=== PATIENT | male | born 1985 | race African-American/Black ===

== ENCOUNTER 2017-11-07 17:28 | Emergency (ER) | payer MEDICAID ==
[~2017-11-07] VITALS: Ht 170.2 cm; Wt 73.0 kg
[2017-11-07 18:17] VITALS: BP 116/65
== END 2017-11-07 23:14 | disposition home or self-care (01) ==
LOC: ER 23:09
DX: J06.9 Acute upper respiratory infection, unspecified (principal)
CPT/HCPCS: 71045; 99283

== ENCOUNTER 2018-12-17 09:38 | Emergency (ER) | payer BC, MEDICAID ==
[~2018-12-17] VITALS: Ht 167.6 cm; Wt 66.0 kg
[2018-12-17] MEDS ORDERED: ONDANSETRON HCL 4MG/2ML INJ IM ONE (10:15)
[2018-12-17] MEDS ORDERED: ACETAMINOPHEN 500MG TABLET PO ONE (10:15)
[2018-12-17 10:40] LABS: CLARITY URINE CLEAR (CLEAR); COLOR URINE YELLOW (YELLOW); KETONES URINE NEGATIVE (NEGATIVE); LEUKOCYTE ESTERASE URINE NEGATIVE (NEGATIVE); NITRITE URINE NEGATIVE (NEGATIVE); OCCULT BLOOD URINE NEGATIVE (NEGATIVE); PH URINE 6.5 (4.5-8.0); PROTEIN URINE NEGATIVE (NEGATIVE); SPECIFIC GRAVITY URINE 1.019 (1.005-1.030); UROBILINOGEN URINE 0.2 E.U./dL (0.2-1.0)
[2018-12-17 12:00] VITALS: BP 112/67
== END 2018-12-17 12:04 | disposition home or self-care (01) ==
LOC: ER 09:38
DX: R10.32 Left lower quadrant pain (principal); R11.2 Nausea with vomiting, unspecified; R19.7 Diarrhea, unspecified; Z98.890 Other specified postprocedural states
CPT/HCPCS: 81003; 96372; 99283; J2405

== ENCOUNTER 2024-09-09 19:25 | Emergency (ER) | payer BC, MEDICAID ==
[~2024-09-09] VITALS: Ht 167.6 cm; Wt 160.0 kg
[2024-09-09 19:36] VITALS: O2SAT 100
[2024-09-09 20:01] VITALS: BP 121/83; PULSE 72; RESP 18; TEMP 36.8; O2SAT 99
[2024-09-09] MEDS: FLUORESCEIN SODIUM 1MG/STRIP BOTHEYE ONE (20:15)
[2024-09-09] MEDS: TETRACAINE 0.5% OPHTH DROPS 4ML BOTHEYE ONE (20:26)
== END 2024-09-09 21:03 | disposition home or self-care (01) ==
LOC: ER 19:25
DX: H57.11 Ocular pain, right eye (principal)
CPT/HCPCS: 99283